=== PATIENT | male | born 1960 | race Caucasian/White ===

== ENCOUNTER 2020-01-31 10:55 | Day surgery (SDC) | payer BC ==
[~2020-01-31 10:55] MED LIST: AEC81 PO; ASCO100031 PO; CYAN-52 PO; ERGOCALCIFEROL PO; HYDR-4064 PO; IBUP-2077 PO; LOSA25TA41 PO; MULT-1192 PO; OMEG1CAP31 PO; OMEP40CA13 PO; PREG100C PO; TURM500C9 PO; ZINC PO
[2020-01-31 11:40] VITALS: BP 123/84
[2020-01-31] MEDS ORDERED: BUPIVACAINE/PF 0.25% 30ML VIAL IJ ONE (11:45)
[2020-01-31] MEDS ORDERED: LIDOCAINE HCL 1% 20 ML VIAL ONE (11:57)
[2020-01-31 12:50] VITALS: BP 135/73
[2020-01-31 13:05] VITALS: BP 134/89
== END 2020-01-31 13:30 | disposition home or self-care (01) ==
LOC: DAH 10:55 → EDSEX 10:55 → DAH 13:30
PROVIDERS: ATTEND Family Medicine Sports Medicine
DX: M47.22 Other spondylosis with radiculopathy, cervical region (principal); Z20.828 Contact with and (suspected) exposure to other viral communicable diseases; M25.512 Pain in left shoulder; G89.29 Other chronic pain; M75.102 Unspecified rotator cuff tear or rupture of left shoulder, not specified as traumatic; M75.42 Impingement syndrome of left shoulder; Z79.82 Long term (current) use of aspirin; Z79.899 Other long term (current) drug therapy; Z98.890 Other specified postprocedural states; Z90.49 Acquired absence of other specified parts of digestive tract
CPT/HCPCS: 64490; 64491; A4215; A4221; A4223; A4615; A4663; C9803; J3490; U0003; 77003